=== PATIENT | male | born 1985 | race Caucasian/White ===

== ENCOUNTER 2021-08-04 20:18 | Emergency (ER) | payer MEDICAID, SELFPAY ==
[2021-08-04 20:23] VITALS: BP 156/81; PULSE 110; RESP 18; TEMP 36.6; O2SAT 97
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
[2021-08-04] MEDS: Ibuprofen 800 MG TAB PO (21:12)
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
== END 2021-08-04 22:05 | disposition home or self-care (01) ==
PROVIDERS: Emergency Provider Student in an Organized Health Care Education/Training Program
DX: S62.396A Other fracture of fifth metacarpal bone, right hand, initial encounter for closed fracture (principal); S69.81XA Other specified injuries of right wrist, hand and finger(s), initial encounter; W22.09XA Striking against other stationary object, initial encounter
CPT/HCPCS: 29125; 99284; 73110; 73130; 99283

== ENCOUNTER 2021-08-18 10:30 | Outpatient (CLI) | payer MEDICAID, SELFPAY ==
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
== END 2021-08-18 10:31 | disposition home or self-care (01) ==
LOC: DIORS 10:30
PROVIDERS: Visit Provider Student in an Organized Health Care Education/Training Program
DX: S62.336A Displaced fracture of neck of fifth metacarpal bone, right hand, initial encounter for closed fracture; X58.XXXA Exposure to other specified factors, initial encounter
CPT/HCPCS: 73130

== ENCOUNTER 2021-08-18 10:59 | Outpatient (CLI) | payer MEDICAID, SELFPAY ==
[2021-08-18 12:28] LABS: Source Nasal/Nares
[2021-08-19 01:20] LABS: COVID-19 PCR Negative (Negative)
== END 2021-08-18 11:00 | disposition home or self-care (01) ==
LOC: LBO 11:00
PROVIDERS: Visit Provider Student in an Organized Health Care Education/Training Program
DX: Z20.822 Contact with and (suspected) exposure to COVID-19 (principal); Z01.818 Encounter for other preprocedural examination
CPT/HCPCS: 87635

== ENCOUNTER 2021-08-20 10:49 | Day surgery (SDC) | payer MEDICAID, SELFPAY ==
--- NOTE | 2021-08-20 10:33 | W.ANESPRE ---
General Info Date of Service Date Performed: 08/20/21 Height: 5 ft 10 in Weight: 85.729 kg Body Mass Index (BMI): 27.1 Surgical Procedure: Operation Date: 08/20/21 13:40 Proposed Procedure Side Surgeon p Small Finger Metacarpal Closed Reduction and Splinting, possible Perc Pinning Right Last Fuentes MD Meds Allergies and Home Medications Allergies Allergy/AdvReac Type Severity Reaction Status Date / Time No Known Allergies Allergy Unverified 08/20/21 11:04 Home Medication Medication Instructions Recorded dextroamphetamine-amphetamine 30 30 mg PO BID 08/04/21 mg tablet (Adderall) Current Visit Medications: Current Medications Generic Name Dose Route Start Last Admin Trade Name Freq PRN Reason Stop Dose Admin Ringer's Solution 1,000 mls @ 30 mls/hr 08/20/21 06:00 IV 09/18/21 23:59 INFUSION ELIA Cefazolin Sodium/Dextrose 2 gm in 50 mls @ 100 mls/hr 08/20/21 06:00 Ancef Duplex IVPB 08/20/21 16:00 PREOP ELIA IV Miscellaneous Supplies 1 each 08/20/21 06:00 Iv Access IV 09/18/21 23:59 DIRECTED ELIA Naproxen 250 - 500 mg 08/20/21 07:33 Naproxen 500 Mg Tab PO BID PRN PRN Oxycodone HCl 5 - 10 mg 08/20/21 07:33 Oxycodone 5 Mg Tab PO Q4H PRN PRN Sodium Chloride 0 ml 08/20/21 06:00 Normal Saline Flush 10 Ml Syr IV 09/18/21 23:59 PRN PRN Sodium Chloride 0 ml 08/20/21 06:00 Normal Saline 10 Ml Vial IJ 09/18/21 23:59 DIRECTED PRN Sterile Water 0 ml 08/20/21 06:00 Water,Injection,Sterile 10 Ml Vial IJ 09/18/21 23:59 DIRECTED PRN PFSH Active Problems Active Problems: Problem Status Onset Code Closed fracture of fifth metacarpal bone of right hand 08/04/21 S62.306A Injury of right middle finger S69.91XA 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 Medical History Medical History (Updated 08/20/21 @ 11:58 by Helena Nayak RN) ADHD (attention deficit hyperactivity disorder) History of broken collarbone Hx of fracture of clavicle Hx of fracture of femur Tobacco Smoking/Tobacco Use Status: Current every day Tobacco Type: cigarettes Alcohol Alcohol Intake: current Alcohol intake frequency: a few times a week Substance Use Substance use type: does not use Vital Signs and Lab Results Vital Signs Most Recent Vital Signs in EMR: Temp Pulse Resp BP Pulse Ox 36.3 C L 84 18 147/81 H 98 08/20/21 11:07 08/20/21 11:07 08/20/21 11:07 08/20/21 11:07 08/20/21 11:07 Lab Results Blood Type / Crossmatch: No Data to Display Complete Blood Count: No Data to Display Complete Metabolic Panel: No Data to Display Liver Function Panel: No Data to Display Coagulation Panel: No Data to Display Cardiac Panel: No Data to Display Arterial Blood Gas: No Data to Display Venous Blood Gas: No Data to Display Pancreas Panel: No Data to Display Thyroid Panel: No Data to Display Infectious Disease: Coronavirus (COVID-19)(PCR) Negative (Negative) 08/18/21 11:07 Coronavirus 2019 Source Nasal/Nares 08/18/21 11:07 Blood Cultures: No Data to Display Toxicology Panel: No Data to Display Anesthesia Assessment and Plan Anesthesia History Personal History: No History of Anesthesia Complications Family History: No Family History of Anesthesia Complications Exercise Tolerance Exercise Tolerance: Metabolic Equivalents>4 Pertinent Negatives Pertinent Negatives: No Symptoms of GERD, No Major Cardiovascular Symptoms or Complaints, No Major Pulmonary Symptoms or Complaints and No History of CVA/TIA Cardiac & Pulmonary Exam Cardiac Exam: Normal S1/S2 Heart Sounds Pulmonary Exam: Clear Bilateral Breath Sounds Implantable Cardiac Device Does patient have a Pacemaker or an ICD?: No Airway Exam Known Difficult Airway: No Mallampati Class: 2 Mouth Opening: Normal (> 3cm) Thyromental Distance: Greater than 3 cm Neck Range of Motion: Full ROM Neck Circumference: Normal Teeth Condition: Normal Dentition ASA Classification ASA Score: ASA 2 Emergency Case?: No NPO Status NPO Status: NPO Clears >2 hours, Solids >8 hours Anesthesia Plan Resuscitation Status: Full Code Anesthesia Technique: General Anesthesia Airway Planned: Natural Airway Monitors Used: Standard Monitors
[2021-08-20 11:07] VITALS: BP 147/81; PULSE 84; RESP 18; TEMP 36.3; O2SAT 98
[2021-08-20] MEDS: Lactated Ringers 1,000 ML 30 ML IV (11:27)
[2021-08-20 13:32] VITALS: BMI 27.1
[2021-08-20] MEDS: Bupivacaine 0.5% Pres-Free W/EPI 10 ML VIAL (14:04)
--- NOTE | 2021-08-20 14:06 | DI.RAD_ITS ---
Exam(s) XR HAND RT LIMITED EXAM: XR HAND RT LIMITED CLINICAL HISTORY: Closed fracture of fifth metacarpal bone of right. TECHNIQUE: 2D and realtime digital imaging was performed. COMPARISON: CR XR HAND RT COMPLETE from 08/18/2021 FINDINGS: Fluoroscopy was provided for Dr. Fuentes for guidance with performing close reduction 5th metacarpal fr acture. Hard copy images show improvement in the fracture alignment. Please see procedure note for details. Fluoro time 39.2 seconds RADIATION DOSE DELIVERED: Felisar=0.84 mGy
[2021-08-20 14:13] VITALS: BP 137/67; PULSE 89; RESP 16; TEMP 37; O2SAT 96
--- NOTE | 2021-08-20 14:22 | W.PM.DSUDISC ---
Discharge Plan Disposition Patient Disposition: HOME Condition: Stable Discharge Details Reason For Visit: Right hand fracture Attending Provider: Last Fuentes Primary Care Provider: None,None Home Meds and New Rx's Prescriptions: New naproxen 250 mg tablet 250 - 500 mg PO BID PRNQty: 28 0RF Rx Instructions: take with a meal oxycodone 5 mg tablet 5 - 10 mg PO Q4H MDD 30 mg PRN (Reason: moderate to severe pain) Qty: 9 0RF Continued dextroamphetamine-amphetamine [Adderall] 30 mg Tablet 30 mg PO BID Discharge Instructions Additional Instructions: Surgery: Right Boxer's fracture closed reduction Activity: Keep fracture brace on most of the time. Gentle use of the right hand and fingers. Avoid power tools or heavy lifting. Prescriptions: Naproxen 250 mg take 1-2 every 12 hours with a meal as needed for moderate pain Oxycodone 5 mg take 1-2 every 4-6 hours as needed for severe pain You may use [id number] Tylenol (acetaminophen) as needed for mild pain. These pain medications may be taken all at once or in different combinations as needed. Also, recommend Colace (docusate) as a stool softener as surgery and pain medicine cause constipation. You may try [id number] diphenhydramine (Benadryl) 25-50 mg nightly as a sleep aid Dressings: May remove Band-Aid tomorrow Follow-up: 10-[address] Fuentes Let us know right away if you develop any redness, drainage, fevers, chest pain, or trouble breathing. Do not drink alcohol or drive for at least 24 hours after anesthesia. Please call the office during business hours with any questions or concerns. Discharge Orders Discharge Orders: Discharge Order (Routine); Ordered 08/20/21 Ordered By: Last Fuentes DS: Diagnosis Discharge Diagnosis (1) Closed fracture of fifth metacarpal bone of right hand: Status: Acute
--- NOTE | 2021-08-20 14:28 | W.PM.OP ---
Operative Note Operative Note DATE OF PROCEDURE: 08/20/21 PRE-OP DIAGNOSIS: Right displaced fifth metacarpal neck fracture POST-OP DIAGNOSIS: same PROCEDURE: Right fifth metacarpal closed reduction with manipulation, CPT #54634 SURGEON: Last Fuentes E [employer] SPECIALIST: None None ANESTHESIA TYPE: Local By Surgeon and General:No Airway Refer to Anesthesia Record ESTIMATED BLOOD LOSS: 0 PATHOLOGY: none sent TOURNIQUET TIME: 0 COMPLICATIONS: None Patient was transported to: PACU Patient's condition: stable Implants: None Indications: Please see complete medical record for details. Procedure Description: In the operating room, general anesthesia was induced. The patient was positioned supine on the operating room table. All bony prominences were well-padded. Preoperative antibiotics were held pending close reduction. The correct patient, procedure, and side of the procedure were all verified prior to beginning. The fracture site was palpated. Corrective force and exaggerated force was used and attempted reduction. There was no motion at the metacarpal neck fracture site under manual stress and confirmed with fluoroscopy. The fracture was healing and apparently stable. As best possible, the flexion deformity was then corrected using Jahss maneuver. Steady constant corrective manipulation similar to a greenstick fracture was able to achieve a modest reduction. Additional reduction attempts could not completely reduce the fracture. The fracture was well aligned in the coronal plane with only mild to moderate residual flexion deformity. Additional stress x-rays did not show any loss of reduction or motion of the fracture site. 7 cc of 0.5% bupivacaine containing epinephrine was infiltrated about the fracture for postoperative analgesia. Decision was made to omit any plaster ulnar gutter splint. Instead, the previously fit ulnar gutter fracture brace was placed on the extremity. The patient awoke from anesthesia without complication and was transferred to the recovery room in a stable condition.
[2021-08-20 14:50] VITALS: BP 132/74; PULSE 74; RESP 16; TEMP 37; O2SAT 98
[2021-08-20] MEDS: Normal Saline Flush 10 ML SYR IV (14:52)
[2021-08-20] MEDS: oxyCODONE 5 MG TAB PO (14:57)
--- NOTE | 2021-08-20 15:03 | W.ANESPOSTOP ---
Postoperative Evaluation Date, Time and Location Date Performed: 08/20/21 Time Performed: 15:03 Patient Location: Day Surgery Unit Vital Signs Most Recent Imported Vital Signs: Most Recent Vital Signs Temp Pulse Resp BP Pulse Ox 37.0 C 89 16 137/67 96 08/20/21 14:13 08/20/21 14:13 08/20/21 14:13 08/20/21 14:13 08/20/21 14:13 Pain Score Most Recent Pain Score: Most Recent Pain Score Pain Level 0 08/20/21 14:13 Assessment Mental Status: Awake (Alert & Oriented to Patient Baseline) Airway and Respiratory Function: Patent airway with normal (patient baseline) respiratory exam Cardiovascular Function: Hemodynamically Stable Hydration Status: Adequately Hydrated Nausea & Vomiting: No Nausea or Vomiting Pain: Pain is Moderate or Severe (PO oxycodone given by DSU RN) Postoperative Pain Management: Pain being addressed with medication Peripheral Nerve Block: Patient did not receive a nerve block
[2021-08-20 15:30] VITALS: BP 134/80; PULSE 72; RESP 16; TEMP 36.5; O2SAT 100
== END 2021-08-20 15:36 | disposition home or self-care (01) ==
PROVIDERS: Visit Provider Student in an Organized Health Care Education/Training Program
PROC: (CPT 26605; principal; 2021-08-20 13:30)
DX: S62.336A Displaced fracture of neck of fifth metacarpal bone, right hand, initial encounter for closed fracture (principal); W21.89XA Striking against or struck by other sports equipment, initial encounter; Y93.22 Activity, ice hockey; F90.9 Attention-deficit hyperactivity disorder, unspecified type
CPT/HCPCS: 26605; 73120; J1885; J2405; J2704

== ENCOUNTER 2021-09-08 10:20 | Outpatient (CLI) | payer MEDICAID, SELFPAY ==
--- NOTE | 2021-09-08 08:30 | DI.RAD_ITS ---
Exam(s) XR HAND RT LIMITED EXAM: XR HAND RT LIMITED CLINICAL HISTORY: fx R hand. TECHNIQUE: 2D digital imaging was performed of the right hand. Two images were obtained. PA and lat eral views were obtained. COMPARISON: CR XR HAND RT COMPLETE from 08/18/2021 XA XR HAND RT LIMITED from 08/20/2021 FINDINGS: BONES: There is again seen a fracture involving the diaphysis of the right 5th metacarpal. There is mild volar angulation. Callus formation has developed about the fracture consistent with some interv al healing. No new fracture is seen. No bony destructive lesion is seen. JOINTS: No dislocation present. SOFT TISSUE: Normal. IMPRESSION: Healing 5th metacarpal fracture. DATA REPOSITORY: RADIATION DOSE DELIVERED:
== END 2021-09-08 10:21 | disposition home or self-care (01) ==
LOC: DIORS 10:20
PROVIDERS: Visit Provider Physician Assistant
DX: S62.306D Unspecified fracture of fifth metacarpal bone, right hand, subsequent encounter for fracture with routine healing (principal); X58.XXXD Exposure to other specified factors, subsequent encounter
CPT/HCPCS: 73120

== ENCOUNTER → 2021-10-23 00:09 | Outpatient (CLI) | payer MEDICAID, SELFPAY ==
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
--- OUTSIDE RECORDS SUMMARY | 2021-10-23 00:10 | XMS_ITS | Clinical Summary ---
:1985 Author Organization [facility] Address [address] [place] [address] Care Team Providers Name Role Phone None, Provider Primary Care Provider Unavailable Medications No known medications Social History Tobacco Use Types Packs/Day Years Used Date Never Assessed Sex Assigned at Date Recorded Not on file Plan of Treatment Health Maintenance Due Date Last Done Comments Hepatitis C Screen 1985 COVID-19 Vaccine (1) 09/09/1992 Care Teams Client Relationship Consultant Relationship Specialty Start Date End Date None, Provider PCP - General 04/08/21
--- OUTSIDE RECORDS SUMMARY | 2021-10-23 00:10 | XMS_ITS | Encounter Summary ---
:1985 Author Organization [facility] [place] [address] Care Team Providers Name Role Phone None Primary Care Provider Unavailable Encounter Details Date Type Department Care Team Description 10/23/2020 Hospital Encounter [place]Ray [place] [facility] [place] Kim Allison, Closed wedge compression fra cture of T1 vertebra with routine healing, subsequent encounter; [address] [facility] [address] [place] Closed wedge compression fracture of L1 vertebra with routine healing, subsequent encounter [facility] [phone] [place] [phone] [place] [address] Social History Tobacco Use Types Packs/Day Years Used Date Former Smoker Smokeless Tobacco: Current User Chew Alcohol Use Standard Drinks/Week Comments Yes 35 (1 standard drink = 0.6 oz pure alcoh ol) Sex Assigned at Date Recorded Not on file documented as of this encounter Plan of Treatment Not on filedocumented as of this encounter Procedures Procedure Name Priority Date/Time Associated Diagnosis Comme nts XR LUMBAR SPINE 2 Routine 10/23/2020 4:26 PM Closed wedge Resu lts for this OR 3 VIEWS EDT compression fracture procedu re are in of L1 vertebra with the resu lts routine healing, section. subsequent encounter XR THORACIC SPINE 2 Routine 10/23/2020 4:26 PM Closed wedge Re sults for this VIEW INCLUDING EDT compression fracture proce dure are in SWIMMERS VIEW of T1 vertebra with the res ults routine healing, section. subsequent encounter documented in this encounter Results XR Lumbar Spine 2 [...] who have questions please contact the health healthcare architect that requested your imaging first. ? Electronically signed by: Ivan min MD, [facility] ([phone]), at 10/23/2020 4:50 PM Narrative 10/23/2020 4:50 PM EDT EXAMINATION: XR [...] ho have questions please contact the health healthcare architect that requested your imaging first. Electronically signed by: Ivan min MD, [facility] ([phone]), at 10/23/2020 4:50 PM Kim Allison MD IMG DX ORDERABLES XR [...] who have questions please contact the health healthcare architect that requested your imaging first. ? Electronically signed by: Ivan min MD, [facility] ([phone]), at 10/23/2020 4:49 PM Narrative 10/23/2020 4:49 PM EDT EXAMINATION: XR [...] ho have questions please contact the health healthcare architect that requested your imaging first. Electronically signed by: Ivan min MD, [facility] ([phone]), at 10/23/2020 4:49 PM Kim Allison MD IMG DX ORDERABLES documented in this encounter Visit Diagnoses Diagnosis Closed wedge compression fracture of T1 vertebra with routine healing, subsequent encounter Closed wedge compression fracture of L1 vertebra with routine healing, subsequent encounter documented in this encounter Care Teams Sports Book Server Relationship Specialty Start Date End Date None PCP - General 10/06/20 None documented as of this encounter
--- OUTSIDE RECORDS SUMMARY | 2021-10-23 00:10 | XMS_ITS | Encounter Summary ---
:1985 Author Organization [facility] Address [address] [place] [address] Care Team Providers Name Role Phone None, Provider Primary Care Provider Unavailable Encounter Details Date Type Department Care Team Description 04/08/2021 Emergency [facility] - Oswaldo Stein PA-C [address] [place] [address] [phone] Open wound of right [facility] Bryon Jesus MD [address] [place] [address] [phone] hand due to dog bite Department (Primary Dx) [address] [place] [phone] Social History Tobacco Use Types Packs/Day Years Used Date Never Assessed Sex Assigned at Date Recorded Not on file documented as of this encounter Discharge Instructions InstructionsBryon Jesus MD - 04/08/2021 You were seen in the emergency room today for a dog bite to your right hand. There was no evidence of any broken bones or dislocation. You do have multiple puncture wounds. We care a lot about your hands and you should get seen again to be reevaluated make sure that these wounds are healing appropriately and there is no infection. I have placed a referral to orthopedic surgery for you to arrange follow-up. In the meantime, please take the antibiotics we have prescribed twice a day. If you develop significant worsening pain that does not improve with ibuprofen or Tylenol, fevers, red streaking up the arm or other symptoms that are concerning to you please return to the emergency room for reevaluation. It is extremely important that you confirm that the dog that attacked you today has had its rabies vaccine and is up-to-date on shots. Even if you can only get the veterinary clinic where the extrusion press operator brings the dog you should be able to call them and request records. If you are unable to confirm that the dog is up-to-date on vaccines [facility]. documented in this encounter Medications at Time of Discharge Medication Sig Dispensed Refills Start Date End Date amoxicillin-clavulanate Take 1 Tablet by 14 Tablet 0 202104/15/2021 (AUGMENTIN) 875-125 mg mouth 2 times daily per tablet for 7 days. documented as of this encounter Ordered Prescriptions Prescription Sig Dispensed Refills Start Date End Date amoxicillin-clavulanate Take 1 Tablet by 14 Tablet 0 202104/15/2021 (AUGMENTIN) 875-125 mg per mouth 2 times daily tablet for 7 days. documented in this encounter Discharge Disposition Disposition Code Departure Means Destination Home or Self Custodial documented in this encounter ED Notes Bryon Jesus MD - 04/08/2021 1435 ESTAssociated Order(s): Wound Care Emergency Department Visit Assessment and ED Course 35-year-old otherwise healthy male presents for evaluation of dog bite to the right hand. There seemto be 3 separate puncture wounds. No obvious joint involvement. Plain films negative. Dog appears lashae up-to-date on vaccines but we did have a shared decision-making discussion about the initiation of rabies prophylaxis given that the extrusion press operator of the dog is not well known to the patient. We have elected to defer treatment at this time. He will attempt to confirm vaccination status of the dog when he leaves the emergency room. He was informed that if this cannot be confirmed he will return to the emergency department immediately for initiation of rabies prophylaxis. He is up-to-date on his tetanus. He was treated empirically with Augmentin. Wound was copiously irrigated as detailed below. Placed in a bulky gauze dressing. Strict return precautions discussed and included in discharge instructions Final diagnoses: Open wound of right hand due to dog bite Disposition: Discharged Chief complaint: dog bite HPI Erick Clement is a 35 y.o. male who presents to the ED for evaluation of a dog bite Great piranese bit his right hand. No other injuries or bites. Pain in his wrist and difficulty moving his thumb Injury occurred late in the morning today, several hours ago. He does not know the extrusion press operator of the dog well but knows that they live nearby. He states that they cameby his house and told him that the dog was up-to-date on shots. No allergies to meds, no fevers or pain elsewhere. History was provided by: Patient Patient's pertinent PMH, FH, SH were reviewed and edited as necessary. ROS A 10-point review of systems was performed. The patient answered negative to all questions with the exceptions of those explicitly detailed as positives in the HPI. Pertinent negatives are also explicitly stated. Physical Exam There were no vitals taken for this visit. A medical screening exam was performed. Physical Exam Constitutional: Appearance: He is well-developed and well-nourished. HENT: Nose: No nasal discharge. Cardiovascular: Rate and Rhythm: Normal rate. Pulmonary: Effort: No respiratory distress. Abdominal: General: There is no distension. Musculoskeletal: Cervical back: Normal range of motion. Comments: Presumed to be 3 separate puncture wounds to the right hand. One on the dorsal aspect of the right forearm. Does not seem to involve the wrist joint. There are 2 puncture wounds involving the thenar eminence one on the dorsal aspect and one on the volar surface. There are some swelling of the thenar eminence. Again, there does not appear to be any clear joint involvement. The patient does have fully intact flexion, extension, opposition of the thumb with intact sensation to light touch. Finger flexion of the hand results in pain primarily around the thumb. No erythema, purulence, lymphatic streaking. No involvement of the elbow. No other injuries noted. No nailbed injuries noted. Skin: General: Skin is warm and dry. Neurological: Mental Status: He is alert and oriented to person, place, and time. Psychiatric: Mood and Affect: Mood and affect normal. Imaging obtained was reviewed and independently interpreted. Plain film imaging of the hand and wrist are unremarkable for fracture or dislocation. Laboratory results independently reviewed. Procedures Wound Care Date/Time: 04/08/2021 17:26 Performed by: Bryon Jesus MD Authorized by: Bryon Jesus MD Consent: Consent obtained: Verbal Consent given by: Patient Risks discussed: Bleeding and pain Anesthesia (see MAR for exact dosages): Anesthesia method: None (patient refused) Procedure details: Indications comment: Puncture wounds to hand Wound exploration location: extremity Wound age (days): <1 Post-procedure details: Patient tolerance of procedure: Tolerated well, no immediate complications Comments: Copious irrigation of puncture wounds to the right hand using a liter of sterile water. Placed in abulky gauze dressing. documented in this encounter Plan of Treatment Not on filedocumented as of this encounter Procedures Procedure Name Priority Date/Time Associated Diagnosis Comme nts ED WOUND CARE Routine 04/08/2021 17:26 Results fo r this EST procedure are i n the results section. XR WRIST RIGHT 3 OR STAT 04/08/2021 15:21 Resu lts for this MORE VIEWS EST procedure are i n the results section. XR HAND RIGHT 3 OR STAT 04/08/2021 15:20 Resul ts for this MORE VIEWS EST procedure are i n the results section. documented in this encounter Results Wound Care (04/08/2021 17:26 EST) Narrative [facility] EKG - 04/08/2021 17:2 6 EST Bryon Jesus MD ? 04/08/2021 17:29 Wound Care Date/Time: 04/08/2021 17:26 Performed by: Bryon Jesus MD Authorized by: Bryon Jesus MD Consent: ??Consent obtained: ??Verbal ??Consent given by: ??Patient ??Risks discussed: ??Bleeding and pain Anesthesia (see MAR for exact dosages): ??Anesthesia method: ??None (patient re fused) Procedure details: ??Indications comment: ??Puncture wound s to hand ??Wound exploration location: extremity ?Wound age (days): ??<1 Post-procedure details: ??Patient tolerance of procedure: ??Aruna erated well, no immediate complications Comments: ?? Copious irrigation of puncture wound s to the right hand using a liter of sterile water. ??Placed in a bulky ga uze dressing. Performing Organization Address City/State/ZIP Code Phon e Number [facility] EKG XR WRIST RIGHT 3 OR MORE VIEWS (04/08/2021 15:21 EST) Anatomical Region Laterality Modality Upper Extremities Right Computed Radiography Specimen Impressions [facility] RADIOLOG[facility] - 04/08/2021 15:32 EST 1. No acute osseous abnormality. 2. No radiopaque foreign body. Narrative [facility] - 04/08/2021 15:32 EST INDICATION: dog bite vs hand and wrist TECHNIQUE: 3 views right wrist. 4 views right hand. COMPARISON: None. FINDINGS: The wrist and hand are well al igned. No fracture is detected. No radiopaque foreign body is detected. Soft tissue swelling is noted at the thenar eminence. Procedure Note Octavio Smith MD - 04/08/2021 INDICATION: dog bite vs hand and wrist TECHNIQUE: 3 views right wrist. 4 views right hand. COMPARISON: None. FINDINGS: The wrist and hand are well al igned. No fracture is detected. No radiopaque foreign body is detected. Soft tissue swelling is noted at the thenar eminence. IMPRESSION 1. No acute osseous abnormality. 2. No radiopaque foreign body. Performing Organization Address City/State/ZIP Code Phon e Number [facility] XR HAND RIGHT 3 OR MORE VIEWS (04/08/2021 15:20 EST) Anatomical Region Laterality Modality Upper Extremities Right Computed Radiography Specimen Impressions [facility] - 04/08/2021 15:32 EST 1. No acute osseous abnormality. 2. No radiopaque foreign body. Narrative [facility] - 04/08/2021 15:32 EST INDICATION: dog bite vs hand and wrist TECHNIQUE: 3 views right wrist. 4 views right hand. COMPARISON: None. FINDINGS: The wrist and hand are well al igned. No fracture is detected. No radiopaque foreign body is detected. Soft tissue swelling is noted at the thenar eminence. Procedure Note Octavio Smith MD - 04/08/2021 INDICATION: dog bite vs hand and wrist TECHNIQUE: 3 views right wrist. 4 views right hand. COMPARISON: None. FINDINGS: The wrist and hand are well al igned. No fracture is detected. No radiopaque foreign body is detected. Soft tissue swelling is noted at the thenar eminence. IMPRESSION 1. No acute osseous abnormality. 2. No radiopaque foreign body. Performing Organization Address City/State/ZIP Code Phon e Number [facility] documented in this encounter Visit Diagnoses Diagnosis Open wound of right hand due to dog bite - Primary documented in this encounter Administered Medications Inactive Administered Medications - up to 3 most recent administrations Medication Order MAR Action Action Date Dose Rate Site amoxicillin-clavulanate Given 04/08/2021 15:05 EST 1 Tablet (AUGMENTIN) 875-125 mg per tablet 1 Tablet 1 Tablet, oral, NOW X1, 1 dose, On Tue04/08/21 at 1515, STAT documented in this encounter Active and Recently Administered Medications Times are shown in EST. Scheduled Medication Order 04/06/2021 04/07/2021 04/08/2021 amoxicillin-clavulanate (AUGMENTIN) 875-125 mg per tablet 1 Tablet (COMPLETED) 1505 (Given - Provider: Fredo hernandez RN) 1 Tablet, oral, NOW X1, 1 dose, On Tue04/08/21 at 1515, STAT documented in this encounter Orders Medications Ordered That Might Not Have Count Last Ord ered Date First Ordered Date Been Administered amoxicillin-clavulanate (AUGMENTIN) 1 04/08/2021 875-125 mg per tablet 1 Tablet documented in this encounter Care Teams Dairy Farmworker Relationship Specialty Start Date End Date None, Provider PCP - General 04/08/21 documented as of this encounter
--- OUTSIDE RECORDS SUMMARY | 2021-10-23 00:10 | XMS_ITS | Encounter Summary ---
:1985 Author Organization [facility] [place] [address] Care Team Providers Name Role Phone None Primary Care Provider Unavailable Reason for Referral Consultation (Routine) - Closed Specialty Diagnoses / Procedures Referred By Contact Refer red To Contact Neurosurgery Diagnoses Multiple fractures Holly Sharma MD [facility] [address] [place] [address] [place] [address] [place] [address] Referral ID Status Reason Start Date Expiration Date Visits V isits Requested Authorized [id number] Closed Consult, 10/07/2020 10/07/2021 1 1 Test & Treat Consultation (Urgent) - Closed Specialty Diagnoses / Procedures Referred By Contact Refer red To Contact Orthopaedics Diagnoses Multiple fractures Pelvic FX Holly Sharma MD [facility] [address] [place] [address] [place] [address] [place] [address] Referral ID Status Reason Start Date Expiration Date Visits V isits Requested Authorized [id number] Closed Consult, 10/07/2020 10/07/2021 1 1 Test & Treat Reason for Visit Reason Comments Back Pain Hematuria Numbness Encounter Details Date Type Department Care Team Description 10/06/2020 - Emergency Emergency Department Jordan Henderson Mu ltiple fractures; 10/07/2020 Yasmin Cazares MD Closed fracture of first thoracic verteb ra, unspecified fracture morphology, initial encounter; [facility] Closed fracture of first lum bar vertebra, unspecified fracture morphology, initial encounter [facility] DR Morales EMERGENCY MEDICINE [place] [facility] [place] [id number] [phone] Social History Tobacco Use Types Packs/Day Years Used Date Never Assessed Sex Assigned at Date Recorded Not on file documented as of this encounter Last Filed Vital Signs Vital Sign Reading Time Taken Comments Blood Pressure 138/80 10/06/2020 11:15 PM EDT Pulse 74 10/06/2020 7:08 PM EDT Temperature 36.5 ??C (97.7 ??F) 10/06/2020 1:58 PM EDT Respiratory Rate 16 10/06/2020 7:08 PM EDT Oxygen Saturation 97% 10/07/2020 12:30 AM EDT Inhaled Oxygen Concentration - - Weight 86.2 kg (190 lb) 10/06/2020 1:58 PM EDT Height 177.8 cm (5' 10) 10/06/2020 1:58 PM EDT Body Mass Index 27.26 10/06/2020 1:58 PM EDT documented in this encounter Discharge Instructions Discharge InstructionsHolly Sharma MD - 10/07/2020 3:17 AM EDT You were seen in the emergency room due to a fall. You were evaluated by neurosurgery and found to multiple injuries including spinal fracutres and bleeding around your spinal cord. IYou must wear your c- collar until further notice. Please follow-up in neurosurgery clinic in 2 weeks. You can call their clinic to schedule an appointment at [phone]. If you experience worsening or new symptoms including weakness, numbness, severe pain, vision changes, fever, chills, difficulty urinating, or any other concerning symptoms please present to the emergency room right away for further evaluation. Orthopaedic Home Care Instructions Care of Your Broken Bone Below are general guidelines to follow after treatment for a fracture. We will give you more specific instructions depending on the type and location of your injury. You will need to be aware that these guidelines are only general, each person???s recovery may vary. If you have any questions after reading this sheet, please call us. 1. Injury: Anterior inferior iliac spine fracture 2. Activity Weightbearing status: Weight bearing as tolerated in the lower extremities from an orthopedics perspective Use ice over the injured extremity for about 72 hours - at least 3-4 times per day for 20 minutes arlene time. You can use a simple plastic bag with ice (double the bag!) and place the bag over the injured extremity. Ice is effective even through the casts. 3. Prescriptions: We recommend 1000 mg of Tylenol every 8 hours for the next 7-10 days. You may take up to 3000 mg of tylenol daily. You should not exceed 3000 mg daily. This recommendation is in the setting of a healthy liver. If you are concerned about the health of your liver or have other questions, please discuss with your primary care physician about taking this dose of Tylenol. Avoid ibuprofen type medications (aleve, advil, motrin, naprosyn, celebrex). These medications have been suggested to slow bone healing. You should find yourself needing less and less pain medication after the first few days. Take your pain medicine as directed. Take any of your other usual medicines as directed. 4. Please contact us if: If you have any questions or concerns, please call the following: - Orthopaedic Clinic Tuesday thru Tuesday 8am - 5pm: [phone] - Orthopaedic Physician legal receptionist - After 5pm and Weekends: [phone] 5. Follow-Up Appointments: We will contact you tomorrow regarding follow up in the Orthopedics clinic Your care today was provided by Conchis Hughes MD Orthopaedic Clinic: [phone] AttachmentsThe following attachments cannot be sent through Care Everywhere. Cervical Collars: General Info (Tajik)documented in this encounter ED Notes Hermes Gore RN - 10/07/2020 3:39 AM EDTSummary: discharge Reviewed written discharge instructions with the patient. Reviewed care management of the [place] collar. States clear understanding. Accompanied by significant other, who also states clear understanding. Reviewed follow-up plan of care, including follow-up with neurosurgery in 2 weeks and follow-up with orthopedics as directed by the orthopedic office. Phone numbers for both offices reviewed with the patient and discharge instructions. No further questions from the patient the patient significant other. Patient and significant other were independently ambulatory from the emergency department for discharge home Suleiman Michel RN - 10/06/2020 9:39 PM EDT 2134H Patient to MRI by bed with Burnham c-collar. Hermes Gore RN - 10/06/2020 9:37 PM EDT Head to toe physical assessment as noted. Lying on ER stretcher, patient is currently asymptomatic, but when patient turns his head to the left, patient gets pain and numbness down the left arm. With some movement, the patient experiences acute discomfort to his coccyx region. Patient is alert, oriented, pink warm and dry. Patient was found to have an EMS c-collar in place, this was changed to an [place] type collar, under the guidance of neurosurgery. Patient significant other is at the bedside. All questions are answered. Anjali Salinas RN - 10/06/2020 7:23 PM EDT Report given to DARVIN Escoebdo. Gian Bhat MD - 10/06/2020 2:21 PM EDT Erick Clement is an 35 y.o. male who presents to the ED with: Chief Complaint Patient presents with ??? Back Pain ??? Hematuria ??? Numbness I saw this patient 10/06/2020 at ~ 11:06 PM HPI Erick Clement is a 35 y.o. male who presents to the Emergency Department with complaints of back pain, numbness and hematuria after a fall. Patient states that he jumped off a roughly 110 [address] bridge on 10/04/2020. The patient states that he felt okay afterwards and he continued a river float that he was pa rticipating in for several hours. The patient states he was consuming alcohol this time. Patient states that after the referral ended he went to stand up and felt extreme pain in his back and that something was off. Patient presented to an outside hospital where he states the CT images were obtained of his back, chest and abdomen which he states showed compression fractures in his back. Patient states that he was given a soft abdominal wrap and was told to follow-up at a different outside hospital to obtain an MRI and to obtain orthopedic surgery service. Patient states that the hospital did not have MRI present thus he presented to [facility] today. Patient states that he did initially noticed some blood in his urine and again noticed hematuria this morning. Patient states that he has been having no abdominal pain, difficulty breathing, or difficulty walking. Patient states that he has noticed a burning shooting pain in his left hand when he tries to turn to the left. Patient states that this is associated with some numbness which then dissipates. The patient states that he additionally notices some numbness in his toes that is positional based on what direction he is turning. Patient states thathe has had no new weakness and currently denies any numbness. Patient states that since being seen because hospital he has noticed he has had increased pain in his neck as well as increased pain in hiscoccyx region. Social History Socioeconomic History ??? Marital status: Single Spouse name: None ??? Number of children: None ??? Years of education: None ??? Highest education level: None Occupational History ??? None Tobacco Use ??? Smoking status: None Substance and Sexual Activity ??? Alcohol use: None ??? Drug use: None ??? Sexual activity: None Other Topics Concern ??? None Social History Narrative ??? None Social Determinants of Health Financial Resource Strain: ??? Difficulty of Paying Living Expenses: Not on file Food Insecurity: ??? Worried About Running Out of Food in the Last Year: Not on file ??? Ran Out of Food in the Last Year: Not on file Transportation Needs: ??? Lack of Transportation (Medical): Not on file ??? Lack of Transportation (Non-Medical): Not on file Physical Activity: ??? Days of Exercise per Week: Not on file ??? Minutes of Exercise per Session: Not on file Review of Systems: Pertinent positives and negatives are included in the history of present illness, otherwise 10 systems are reviewed and negative Vital Signs: Patient Vitals for the past 24 hrs: BP Temp Temp src Pulse Resp SpO2 Height Weight 10/06/20 1908 144/81 -- -- 74 16 99 % -- -- 10/06/20 1358 -- 36.5 ??C (97.7 ??F) Oral 81 16 96 % 177.8 cm (5' 10) 86.2 kg (190 lb) I have reviewed the vital signs, which demonstrates Physical Exam: Physical Exam Constitutional: General: He is not in acute distress. Appearance: Normal appearance. He is normal weight. He is not ill-appearing. HENT: Head: Normocephalic and atraumatic. Eyes: Conjunctiva/sclera: Conjunctivae normal. Pupils: Pupils are equal, round, and reactive to light. Cardiovascular: Rate and Rhythm: Normal rate and regular rhythm. Pulmonary: Effort: Pulmonary effort is normal. No respiratory distress. Abdominal: General: Abdomen is flat. Tenderness: There is no abdominal tenderness. Musculoskeletal: General: No swelling. Right shoulder: Normal. Left shoulder: Normal. Right elbow: Normal. Left elbow: Normal. Right wrist: Normal. Left wrist: Normal. Cervical back: Normal range of motion and neck supple. Tenderness and bony tenderness present. No deformity. Thoracic back: Tenderness and bony tenderness present. No deformity. Lumbar back: Tenderness and bony tenderness present. No deformity. Skin: General: Skin is warm and dry. Capillary Refill: Capillary refill takes less than 2 seconds. Neurological: General: No focal deficit present. Mental Status: He is alert and oriented to person, place, and time. Cranial Nerves: Cranial nerves are intact. Motor: Motor function is intact. No weakness. Psychiatric: Mood and Affect: Mood normal. Behavior: Behavior normal. ED Course: - Patient was evaluated and discussed with the Attending Physician - Medications, allergies and past medical history reviewed - Nursing notes and vital signs reviewed - Medications and fluid administered: Medications ketorolac (Toradol) (15 mg/mL) injection 15 mg (15 mg Intravenous Given 10/06/201805) acetaminophen (Tylenol) tablet 1,000 mg (1,000 mg Oral Given 10/06/201805) - I have reviewed the labs, which are significant for: Recent Results (from the past 24 hour(s)) Basic Metabolic Panel (non-fasting) Result Value Ref Range Glucose Lvl 100 65 - 199 mg/dL BUN 9 (L) 10 - 20 mg/dL Creatinine 0.89 0.80 - 1.50 mg/dL Sodium 139 135 - 145 mmol/L Potassium 4.0 3.5 - 5.0 mmol/L Chloride 106 98 - 107 mmol/L CO2 22 22 - 31 mmol/L Anion Gap 11 5 - 15 mmol/L Calcium 8.7 8.5 - 10.5 mg/dL Estimated GFR 112 >=60 mL/min/1.73 m?? Hepatic Function Panel Result Value Ref Range Total Protein 7.2 6.1 - 8.0 gm/dL Albumin 4.2 3.2 - 5.2 gm/dL AST 38 0 - 39 unit/L ALT 20 0 - 55 unit/L Alk Phos 63 40 - 130 unit/L Total Bilirubin 0.8 0.2 - 1.3 mg/dL Bili, Direct 0.2 0.0 - 0.3 mg/dL Hemogram Result Value Ref Range WBC 8.1 4.0 - 9.5 x10(3)/mcL RBC 4.40 (L) 4.58 - 5.54 x10(6)/mcL Hemoglobin 14.2 13.7 - 16.5 gm/dL Hematocrit 39.4 (L) 40.5 - 48.5 % MCV 89.5 82.9 - 93.1 fL MCH 32.3 (H) 27.5 - 32.1 pg MCHC 36.0 (H) 32.0 - 35.7 gm/dL Platelets 155 145 - 357 x10(3)/mcL RDWSD 42.0 36.0 - 45.0 fL RDWCV 12.8 11.4 - 13.8 % MPV 10.6 7.6 - 12.9 fL nRBC % Auto 0.0 % nRBC Abs Auto 0.000 0.000 - 0.000 x10(3)/mcL Differential, Automated Result Value Ref Range Neutrophils % 80.2 % Neutr Abs (ANC) 6.49 (H) 1.70 - 6.10 x10(3)/mcL Lymphocytes % 11.6 % Lymphocytes Abs 0.9 0.9 - 3.2 x10(3)/mcL Monocytes % 7.0 % Monocyte Abs 0.6 0.3 - 0.9 x10(3)/mcL Eosinophils % 0.4 % Eosinophils Abs 0.0 0.0 - 0.4 x10(3)/mcL Basophils % 0.4 % Basophils Abs 0.0 0.0 - 0.1 x10(3)/mcL Immature Gran % 0.40 % Sara Gran Abs 0.03 0.00 - 0.04 x10(3)/mcL Blue Tube HOLD Result Value Ref Range Blue Hold Sample in lab. Blue Tube HOLD Result Value Ref Range Blue Hold Sample in lab. Blue Tube HOLD Result Value Ref Range Blue Hold Sample in lab. Urinalysis with reflex Culture Specimen: Clean Catch Urine Result Value Ref Range Glucose UA Negative Negative mg/dL Protein UA Negative Negative mg/dL Bilirubin UA Negative Negative mg/dL Urobilinogen UA Normal Normal mg/dL pH UA 6.5 5.0 - 8.0 Blood UA Negative Negative mg/dL Ketones UA Negative Negative mg/dL Nitrite UA Negative Negative Leukocytes UA Moderate (A) Negative mcL Appearance UA Clear Clear Spec [place] UA 1.010 1.005 - 1.030 Color UA Yellow Yellow Culture Reflexed Yes Urinalysis Microscopic Exam Result Value Ref Range RBC UA 0 0 - 3 /HPF WBC UA 1 0 - 3 /HPF - I have reviewed the imaging, which is significant for: Request For 2nd Read CT Head And Spine Final Result CT brain: Limited by contrast administration but no intracranial hemorrhage or other acute brain injury is identified. CT cervical spine: No fracture or subluxation CT thoracic spine: mild wedged appearance of T1 suggesting minimal compression deformity. MRI may be useful. CT lumbosacral spine: Wedge compression deformity of L1, about 30% vertebral body height loss anteriorly. No definite spinal canal compromise. Thank you for letting us participate in the care of this patient. If you are a health care provider and have any questions regarding this report, please contact the number below. For patients who have questions please contact the health foster care therapist that requested your imaging first. Electronically signed by: Jarad Dennis MD, [facility] ([phone]), at 10/06/2020 6:23 PM Request For 2nd Read CT Spine Final Result CT brain: Limited by contrast administration but no intracranial hemorrhage or other acute brain injury is identified. CT cervical spine: No fracture or subluxation CT thoracic spine: mild wedged appearance of T1 suggesting minimal compression deformity. MRI may be useful. CT lumbosacral spine: Wedge compression deformity of L1, about 30% vertebral body height loss anteriorly. No definite spinal canal compromise. Thank you for letting us participate in the care of this patient. If you are a health care provider and have any questions regarding this report, please contact the number below. For patients who have questions please contact the health foster care therapist that requested your imaging first. Electronically signed by: Jarad Dennis MD, [facility] ([phone]), at 10/06/2020 6:23 PM Request For 2nd Read CT Chest Abdomen Pelvis Final Result 1. L1 vertebral body and coccyx fractures, see separately reported CT spine reconstructions, with a small amount of soft tissue fluid in these areas. 2. Question tiny anterior inferior iliac spine avulsion fracture fragment on the right. Thank you for letting us participate in the care of this patient. If you are a health care provider and have any questions regarding this report, please contact the number below. For patients who have questions please contact the health foster care therapist that requested your imaging first. Electronically signed by: Zara Castellanos MD, [facility] ([phone]), at 10/06/2020 6:15 PM Film Library- Storage Only CT Head And Spine Final Result Film Library- Storage Only CT Spine Final Result Film Library- Storage Only CT Chest Abdomen Pelvis Final Result MRI Cervical Spine wo Contrast (Generic) (Results Pending) MRI Thoracic Spine wo Contrast (Generic) (Results Pending) MRI Lumbar Spine wo Contrast (Generic) (Results Pending) Assessment and Plan: MDM: Erick Clement is a 35 y.o. male who presents to the Emergency Department with complaints of back pain, numbness and hematuria after a fall. Patient presents hemodynamically stable no signs of any acute distress. The patient presents with complaints of back pain, numbness and hematuria after a fall. The patient was evaluated outside hospital 2 days ago where he reportedly receives CT imaging. Is unclear to what extent the imaging was obtained and we are obtaining records from the outside hospital currently. The patient was in no acute distress upon evaluation but did have midline cervical, lumbarand thoracic spine tenderness. Patient also had midline sternal chest tenderness to palpation but nolateral rib tenderness or any difficulty breathing. Patient had no abdominal pain or pelvic pain. Source of the hematuria is unclear at this time. Patient's labs returned reassuring with no evidence of blood in his urine and a normal hemoglobin. It unfortunately took somewhat of a delay to get the images pushed over from outside hospital. Thesewere eventually able to push however successfully and they were reevaluated by the radiology department. They showed a S1 fracture, an L1 vertebral body fracture as well as a coccyx fracture. He also showed a question of a tiny anterior inferior iliac spine avulsion fracture on the right. The patient having multiple fractures multiple sites required us to obtain a trauma evaluation. Orthopedic surgery was consulted as well as neurosurgery. The patient needed his left face dermal piercing removed in order to obtain the MRI, which the patient agreed to. Patient was signed out to the night team pending trauma surgery evaluation, orthopedic surgery evaluation, and neurosurgery evaluation. The patient obtained the MRI of his spine and we are waiting reads. Plan: -Follow-up neurosurgery recommendations -Follow-up orthopedic surgeon recommendations -Trauma surgery eval Gian Bhat MD EM Resident, PGY-3 10/06/20 11:06 PM Gian Bhat MD Resident 10/06/20 4898 Associated attestation - Jordan Henderson MD - 10/08/2020 11:49 PM EDT ED ATTENDING ATTESTATION The patient was seen in conjunction with the resident physician. I have independently performed the thomas portions of the history and physical exam. I have personally reviewed nursing notes, vital signs,and diagnostic studies including labs, imaging studies and EKGs. I have discussed the details of the case with the resident and agree with the assessment and plan as described in the resident's note.. Did this case involve critical care? No Brandon Ingram PA - 10/06/2020 1:52 PM EDT Brief Provider Triage Note: Patient states that he broke his back this weekend after jumping off a 110' bridge and is here for further evaluation. No loss of bowel or bladder control. Admits to numbness in toes in both feet, blood in his urine, left arm numbness when he moves his neck, neck pain, low back pain. No SI/HI. No LOC.He was told to come to the ED for an MRI. Patient is nontoxic appearing Labs ordered. Brandon Ingram PA 10/06/20 1359 documented in this encounter Miscellaneous Notes Consult Note - Conchis Hughes MD - 10/07/2020 3:35 AM EDT ORTHOPAEDIC SURGERY CONSULT NOTE ATTENDING: Dr. Bello Erick Clement is a 35 y.o. male who presents to see us in consultation today at the request of Emergency Department. CHIEF COMPLAINT: Left anterior inferior iliac spine fracture, coccyx fracture HPI: Erick Clement is a 35 y.o. male who presents 2 days s/p jump from bridge over 100 [place] [address] river with left AIIS fracture, coccyx fracture. Patient was interacting with friends, jumping recreationally from bridge. He was doing well after jump, was able to tube down river with friends and weight bear. He comes into ED today due to numbness/tingling in his RUE, on imaging found to have T1 and L1 vertebral body fractures being managed by Neurosurgery. Orthopaedics consulted due to Left anterior inferior iliac spine fracture and coccyx fracture. On exam patient complaining primarily of back pain. He denies any pain in his pelvis, hip, lower extremities. He has been able to ambulate without issue. Hedoes endorse intermittent numbness/tingling in his right arm though he does not have it currently onexam. No chest pain, shortness of breath, nausea/vomiting, other issues. FOCUSED REVIEW OF SYSTEMS: as above. Active Hospital Problems Diagnosis ??? Closed avulsion fracture of left anterior inferior iliac spine Resolved Hospital Problems No resolved problems to display. There are no active non-hospital problems to display for this patient. FAMILY HISTORY: Negative for bleeding/clotting disorders or anesthetic complications. SOCIAL HISTORY: Social History Tobacco Use Smoking Status Not on file Social History Substance and Sexual Activity Alcohol Use None Illicits: As above Living Situation: Lives in [facility] MEDICATIONS: No current facility-administered medications for this encounter. No current outpatient medications on file. OBJECTIVE: No intake or output data in the 24 hours ending 10/10/20 0423 Body mass index is 27.26 kg/m??. PHYSICAL EXAM: Gen: NAD, resting comfortably, AOx3 HEENT: NC, AT CV: RRR assessed peripherally Pulm: No incr WOB on RA Skin: Intact Psych: Nl mood and affect Right Lower Extremity Exam: No TTP pelvis, hip, femur, knee, tib/fib, ankle, foot Painless range of motion of Hip / knee / ankle No effusion in knee / ankle No ecchymosis, erythema, or overlying skin changes. Sensation intact to light touch in Saphenous/Sural/LFC/Femoral/MP/LP/T/DP/SP distributions Motor intact (5/5) hip flexion/extension, knee flexion/extension, ankle flexion/extension, EHL/FHL/TA Brisk capillary refill distally 2+ DP/PT pulses Left Lower Extremity Exam: No TTP pelvis, hip, femur, knee, tib/fib, ankle, foot Painless range of motion of Hip / knee / ankle No effusion in knee / ankle No ecchymosis, erythema, or overlying skin changes. Sensation intact to light touch in Saphenous/Sural/LFC/Femoral/MP/LP/T/DP/SP distributions Motor intact (5/5) hip flexion/extension, knee flexion/extension, ankle flexion/extension, EHL/FHL/TA Brisk capillary refill distally 2+ DP/PT pulses LABS: Lab Results Component Value Date NA 139 10/06/2020 K 4.0 10/06/2020 CL 106 10/06/2020 CO2 22 10/06/2020 BUN 9 (L) 10/06/2020 CREATININE 0.89 10/06/2020 GLUCOSE 100 10/06/2020 CALCIUM 8.7 10/06/2020 Lab Results Component Value Date WBC 8.1 10/06/2020 HGB 14.2 10/06/2020 HCT 39.4 (L) 10/06/2020 MCV 89.5 10/06/2020 PLATELET 155 10/06/2020 IMAGING: Xray Pelvis 3 Views No acute fracture or dislocation CT CAP Avulsion fracture of left anterior inferior iliac spine. Minimally displaced coccyx fracture. ASSESSMENT/RECOMMENDATIONS: 35 y.o. male presenting 2 days s/p jump from bridge over 100 [place] river with left AIIS fracture, coccyx fracture. Other injuries include spine fractures being managed by NSGY. Patient asymptomatic in terms of AIIS, coccyx. Recommend WBAT and donut for comfort if needed. Patient may follow up with Orthopedics as needed. - Activity- WBAT b/l lower extremities - DVT prophylaxis- per primary - Imaging needed- None - Follow-up- PRN - Discuss with Dr. Bello I have contacted the referring team and discussed our evaluation and recommendations as listed above. The orthopaedic service will continue to follow this patient. Thank you for the opportunity to assist in their evaluation and treatment. Please page Orthopaedic consults ([phone]) with any questions or co ncerns. ?? Conchis Hughes MD P. [phone] 10/10/20 4:23 AM Future Appointments Date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 Results for this EDT procedure are i n the results section. BLUE TUBE HOLD STAT 10/06/2020 3:00 PM Results for this EDT procedure are i n the results section. HC CBC,PLT & AUTO STAT 10/06/2020 3:00 PM DIFF EDT HEPATIC FUNCTION STAT 10/06/2020 3:00 PM Resul ts for this PANEL EDT procedure are i n the results section. BASIC METABOLIC PANEL STAT 10/06/2020 3:00 PM Results for this (NON-FASTING) EDT procedure are in the results section. FILM LIBRARY STORAGE STAT 10/04/2020 12:10 Res ults for this ONLY CT HEAD AND AM EDT procedure a re in SPINE the results section. FILM LIBRARY STORAGE STAT 10/04/2020 12:05 Res ults for this ONLY CT SPINE AM EDT procedure are in the results section. FILM LIBRARY STORAGE STAT 10/04/2020 12:00 Res ults for this ONLY CT CHEST ABDOMEN AM EDT proced ure are in PELVIS the results section. documented in this encounter Results XR Lumbar Spine 2 Or 3 Views (Generic) (10/07/2020 12:51 AM EDT) Anatomical Region Laterality Modality L-spine N/A Digital Radiography Specimen (Source) Anatomical Location Collection Method / Collectio n Time Received Time / Laterality Volume Impressions 10/07/2020 1:12 AM EDT 1. ??No spondylolisthesis. 2. ??Unchanged morphology of T1 and L1 f ractures with standing. Thank you for letting us participate in the care of this patient. ??If you are a health care provider and have any questi ons regarding this report, please contact the number below. ??For patients who have questions please contact the health foster care therapist that requested your imaging first. ? Electronically signed by: Juan Carlos mares MD, [facility] ([phone]), at 10/07/2020 1:12 AM Narrative 10/07/2020 1:12 AM EDT EXAMINATION: XR THORACIC SPINE 2 VIEWS, XR LUMBAR SPINE 2 OR 3 VIEWS (GENERIC) CLINICAL HISTORY: standing without back support, eval T1 fracture TECHNIQUE: 2 views of the thoracic spine, 4 images. Standing views. AP and lateral views of the lumbar spine , 2 images. Standing views. COMPARISON: MRI of the cervical, thoracic and lumbar spine 10/06/2020. CT of the thoracic and lumbar spine 2020 FINDINGS: Normal alignment of the thoracic spine. No spondylolisthesis. Redemonstration of the subtle anterior superior endplate fr acture of T1. No interval change in morphology. The upper thoracic spine is not well evaluated due to superimposing soft tissues and left clavicle hardware. Normal alignment of the lumbar spine. No spondylolisthesis. Redemonstration of the fracture involving the anterior supe rior endplates of L1. Unchanged morphology of the fracture with unchange d approximately 35-40% loss of anterior vertebral body height. Procedure Note Juan Carlos Jacobs MD - 10/07/2020Fo rmatting of this note might be different from the original. EXAMINATION: XR THORACIC SPINE 2 VIEWS, XR LUMBAR SPINE 2 OR 3 VIEWS (GENERIC) CLINICAL HISTORY: standing without back support, eval T1 fracture TECHNIQUE: 2 views of the thoracic spine, 4 images. Standing views. AP and lateral views of the lumbar spine , 2 images. Standing views. COMPARISON: MRI of the cervical, thoracic and lumbar spine 10/06/2020. CT of the thoracic and lumbar spine 2020 FINDINGS: Normal alignment of the thoracic spine. No spondylolisthesis. Redemonstration of the subtle anterior superior endplate fr acture of T1. No interval change in morphology. The upper thoracic spine is not well evaluated due to superimposing soft tissues and left clavicle hardware. Normal alignment of the lumbar spine. No spondylolisthesis. Redemonstration of the fracture involving the anterior supe rior endplates of L1. Unchanged morphology of the fracture with unchange d approximately 35-40% loss of anterior vertebral body height. IMPRESSION 1. No spondylolisthesis. 2. Unchanged morphology of T1 and L1 fra ctures with standing. Thank you for letting us participate in the care of this patient. If you are a health care provider and have any questi ons regarding this report, please contact the number below. For patients w ho have questions please contact the health foster care therapist that requested your imaging first. Electronically signed by: Juan Carlos mares MD, [facility] ([phone]), at 10/07/2020 1:12 AM Elly Thayern RESIDENTIAL TREATMENT STAFF IMG DX ORDERABLES XR Thoracic Spine 2 views (10/07/2020 12:51 AM EDT) Anatomical Region Laterality Modality N/A Digital Radiography Specimen (Source) Anatomical Location Collection Method / Collectio n Time Received Time / Laterality Volume Impressions 10/07/2020 1:12 AM EDT 1. ??No spondylolisthesis. 2. ??Unchanged morphology of T1 and L1 f ractures with standing. Thank you for letting us participate in the care of this patient. ??If you are a health care provider and have any questi ons regarding this report, please contact the number below. ??For patients who have questions please contact the health foster care therapist that requested your imaging first. ? Electronically signed by: Juan Carlos mares MD, [facility] ([phone]), at 10/07/2020 1:12 AM Narrative 10/07/2020 1:12 AM EDT EXAMINATION: XR THORACIC SPINE 2 VIEWS, XR LUMBAR SPINE 2 OR 3 VIEWS (GENERIC) CLINICAL HISTORY: standing without back support, eval T1 fracture TECHNIQUE: 2 views of the thoracic spine, 4 images. Standing views. AP and lateral views of the lumbar spine , 2 images. Standing views. COMPARISON: MRI of the cervical, thoracic and lumbar spine 10/06/2020. CT of the thoracic and lumbar spine 2020 FINDINGS: Normal alignment of the thoracic spine. No spondylolisthesis. Redemonstration of the subtle anterior superior endplate fr acture of T1. No interval change in morphology. The upper thoracic spine is not well evaluated due to superimposing soft tissues and left clavicle hardware. Normal alignment of the lumbar spine. No spondylolisthesis. Redemonstration of the fracture involving the anterior supe rior endplates of L1. Unchanged morphology of the fracture with unchange d approximately 35-40% loss of anterior vertebral body height. Procedure Note Juan Carlos Jacobs MD - 10/07/2020Fo rmatting of this note might be different from the original. EXAMINATION: XR THORACIC SPINE 2 VIEWS, XR LUMBAR SPINE 2 OR 3 VIEWS (GENERIC) CLINICAL HISTORY: standing without back support, eval T1 fracture TECHNIQUE: 2 views of the thoracic spine, 4 images. Standing views. AP and lateral views of the lumbar spine , 2 images. Standing views. COMPARISON: MRI of the cervical, thoracic and lumbar spine 10/06/2020. CT of the thoracic and lumbar spine 2020 FINDINGS: Normal alignment of the thoracic spine. No spondylolisthesis. Redemonstration of the subtle anterior superior endplate fr acture of T1. No interval change in morphology. The upper thoracic spine is not well evaluated due to superimposing soft tissues and left clavicle hardware. Normal alignment of the lumbar spine. No spondylolisthesis. Redemonstration of the fracture involving the anterior supe rior endplates of L1. Unchanged morphology of the fracture with unchange d approximately 35-40% loss of anterior vertebral body height. IMPRESSION 1. No spondylolisthesis. 2. Unchanged morphology of T1 and L1 fra ctures with standing. Thank you for letting us participate in the care of this patient. If you are a health care provider and have any questi ons regarding this report, please contact the number below. For patients w ho have questions please contact the health foster care therapist that requested your imaging first. Electronically signed by: Juan Carlos mares MD, [facility] ([phone]), at 10/07/2020 1:12 AM Elly Blair RESIDENTIAL TREATMENT STAFF IMG DX ORDERABLES XR Pelvis Min 3 Views (10/06/2020 11:40 PM EDT) Anatomical Region Laterality Modality Pelvis N/A Digital Radiography Specimen (Source) Anatomical Location Collection Method / Collectio n Time Received Time / Laterality Volume Impressions 10/07/2020 1:26 AM EDT 1. ??Intact pelvic ring and bilateral proximal femurs. 2. ??Small, nondisplaced coccyx fracture better characterized on recent CT. Preliminary report signed by: Steven Moran at 10/07/2020 12:56 AM I have personally reviewed the image(s) and the resident's interpretation and agree with the findings, Erick Fernandez MD at 10/07/2020 1:26 AM Thank you for letting us participate in the care of this patient. ??If you are a health care provider and have any questi ons regarding this report, please contact the number below. ??For patients who have questions please contact the health foster care therapist that requested your imaging first. ? Electronically signed by: Erick Fernandez MD, [facility] ([phone]), at 10/07/2020 1:26 AM Narrative 10/07/2020 1:26 AM EDT EXAMINATION: XR PELVIS MIN 3 VIEWS CLINICAL HISTORY: Include inlet and outl et views TECHNIQUE: 3 views of the pelvis COMPARISON: CT abdomen/pelvis 10/04/2020 FINDINGS: The pelvic ring is intact. No femoral fr actures. Small nondisplaced coccyx fracture or characterized on recent CT. Joint spaces are preserved. No radiopaque foreign bodies. Procedure Note Erick Fernandez MD - 10/07/2020Formatt ing of this note might be different from the original. EXAMINATION: XR PELVIS MIN 3 VIEWS CLINICAL HISTORY: Include inlet and outl et views TECHNIQUE: 3 views of the pelvis COMPARISON: CT abdomen/pelvis 10/04/2020 FINDINGS: The pelvic ring is intact. No femoral fr actures. Small nondisplaced coccyx fracture or characterized on recent CT. Joint spaces are preserved. No radiopaque foreign bodies. IMPRESSION 1. Intact pelvic ring and bilateral prox imal femurs. 2. Small, nondisplaced coccyx fracture b oriana characterized on recent CT. Preliminary report signed by: Steven Moran at 10/07/2020 12:56 AM I have personally reviewed the image(s) and the resident's interpretation and agree with the findings, Erick Fernandez MD at 10/07/2020 1:26 AM Thank you for letting us participate in the care of this patient. If you are a health care provider and have any questi ons regarding this report, please contact the number below. For patients w ho have questions please contact the health foster care therapist that requested your imaging first. Electronically signed by: Erick Fernandez MD, [facility] ([phone]), at 10/07/2020 1:26 AM Jordan Henderson MD IMG DX ORDERABLES XR Clavicle Left (Generic) (10/06/2020 11:40 PM EDT) Anatomical Region Laterality Modality Shoulder, Chest Left Digital Radiography Specimen (Source) Anatomical Location Collection Method / Collectio n Time Received Time / Laterality Volume Impressions 10/07/2020 1:05 AM EDT Status post fixation of left mid clavicle. No evidence of complication or fracture. Thank you for letting us participate in the care of this patient. ??If you are a health care provider and have any questi ons regarding this report, please contact the number below. ??For patients who have questions please contact the health foster care therapist that requested your imaging first. ? Electronically signed by: Juan Carlos mares MD, [facility] ([phone]), at 10/07/2020 1:05 AM Narrative 10/07/2020 1:05 AM EDT EXAMINATION: XR CLAVICLE LEFT (GENERIC) CLINICAL HISTORY: Left clavicle tenderne ss TECHNIQUE: 2 views LEFT clavicle COMPARISON: None FINDINGS: Status post plate and screw fixation of the mid left clavicle. Hardware is intact. No fracture of the clavicle. Nor mal alignment at the acromioclavicular joint. Normal appearance of the glenohum eral joint on these nondedicated views of this joint. Visualized left upper hem ithorax is unremarkable. Procedure Note Juan Carlos Jacobs MD - 10/07/2020Fo rmatting of this note might be different from the original. EXAMINATION: XR CLAVICLE LEFT (GENERIC) CLINICAL HISTORY: Left clavicle tenderne ss TECHNIQUE: 2 views LEFT clavicle COMPARISON: None FINDINGS: Status post plate and screw fixation of the mid left clavicle. Hardware is intact. No fracture of the clavicle. Nor mal alignment at the acromioclavicular joint. Normal appearance of the glenohum eral joint on these nondedicated views of this joint. Visualized left upper hem ithorax is unremarkable. IMPRESSION Status post fixation of left mid clavicl e. No evidence of complication or fracture. Thank you for letting us participate in the care of this patient. If you are a health care provider and have any questi ons regarding this report, please contact the number below. For patients w ho have questions please contact the health foster care therapist that requested your imaging first. Electronically signed by: Juan Carlos mares MD, [facility] ([phone]), at 10/07/2020 1:05 AM Jordan Henderson MD IMG DX ORDERABLES MRI Lumbar Spine wo Contrast (Generic) (10/06/2020 10:37 PM EDT) Anatomical Region Laterality Modality L-spine Magnetic Resonance Specimen (Source) Anatomical Location Collection Method / Collectio n Time Received Time / Laterality Volume Impressions 10/07/2020 12:54 AM EDT 1. ??T1 vertebral body fracture involving the anterior superior endplate. 2. ??L1 vertebral body fracture involvin g the anterior and superior endplate with extension of the fracture to the posteri or cortex where there is minimal posterior buckling of the cortex. 3. ??No traumatic disc herniations. 4. ??No ligamentous injury in the cervic al spine. 5. ??Trace left ventral epidural hematom a within the low cervical spine with no mass effect upon the spinal cord. This r epresents a change from the preliminary resident report. 6. ??No spinal cord signal abnormalities in the cervical, thoracic or lumbar spine. 7. ??No significant central canal or chris ral foraminal narrowing. Preliminary report signed by: Jarrod weiss at 10/06/2020 11:43 PM I have personally reviewed the image(s) and the resident's interpretation and agree with the findings, Juan Carlos medrano MD at 10/07/2020 12:54 AM Thank you for letting us participate in the care of this patient. ??If you are a health care provider and have any questi ons regarding this report, please contact the number below. ??For patients who have questions please contact the health foster care therapist that requested your imaging first. ? Electronically signed by: Juan Carlos mares MD, [facility] ([phone]), at 10/07/2020 12:54 AM Narrative 10/07/2020 12:54 AM EDT EXAMINATION: MRI CERVICAL SPINE WO CONTRAST (GENERIC), MRI THORACIC SPINE WO CONTRAST (GENERIC), MRI LUMBAR SPINE WO CONTRAST (GENERIC) CLINICAL HISTORY: 35-year-old male who p resents after jumping off a 100 foot bridge with neck and back pain and an ac [place] T1 and L1 fracture TECHNIQUE: MRI of the cervical, thoracic, and lumba r spine performed without intravenous contrast administration. COMPARISON: CT of the cervical, thoracic, and lumbar spine on 10/04/2020 FINDINGS: CERVICAL SPINE: Normal alignment without spondylolisthes is. Vertebral body heights and disc space heights are well-maintained. No ab normal marrow space or disc space signal to suggest fracture, discitis/osteomyeli tis or marrow replacing process. There is abnormal thin eccentric left-sided mi ldly T1 hyperintense and T2 hyperintense signal within the left ventral epidural space (axial series 8 image 34, sagittal series 5 image 7) consistent with trace ventral epidural hematoma. This hematoma lifts the dura however does not contact the spinal cord. There is no significant mass effect upon the cervical spinal cor d. The anterior longitudinal ligament, post erior longitudinal ligament and ligamentum flavum are intact. No prevert ebral edema. Normal signal within the soft tissues of the neck. Normal carotid and vertebral artery flow voids within the [id number]. Normal spinal cord signal. Visualized po sterior fossa is unremarkable. THORACIC SPINE: Normal alignment without spondylolisthes is. Focal abnormal T1 hypointense and T2 hyperintense marrow signal at the anteri or superior corner of the T1 vertebral body consistent with microtrabecular fra cture, with 10% loss of anterior vertebral body height compared to adjace nt segments. No buckling or deformation of the posterior cortex. No disc extrusi ons or protrusions. Normal spinal cord signal. Eccentric signal within the left ventral epidural space at the cervicothoracic junction consistent with trace epidural hematoma (sagittal series 10 image 14). No significant degenerative disc disease . Several endplate Schmorl's nodes are pre sent in the lower thoracic spine. Normal signal within the soft tissues of the paraspinal thorax. LUMBAR SPINE: Normal alignment without spondylolisthes is. There is a fracture involving the L1 level with fracture line extending from the anterior to the margin of the posterior cortex. There is mild buckling of the posterior cortex without retropulsion. There is approximately 40% loss of anterior vertebral body height with abnormal marrow edema throughout th e vertebral body.Loss of normal T2 hyperintensity in the L1-L2 disc. No dis c protrusion or extrusion. No abnormal cord signal. The conus medul margareth terminates at the superior endplate of the L2 vertebral body. No epidural collections. No significant degenerative disc disease. No significant spinal canal narrowing or ne ural foraminal stenosis. Unremarkable retroperitoneum. Normal sig nal within the soft tissues of the paraspinal lumbar region. Procedure Note Juan Carlos Jacobs MD - 10/07/2020Fo rmatting of this note might be different from the original. EXAMINATION: MRI CERVICAL SPINE WO CONTR AST (GENERIC), MRI THORACIC SPINE WO CONTRAST (GENERIC), MRI LUMBAR SPINE WO CONTRAST (GENERIC) CLINICAL HISTORY: 35-year-old male who p resents after jumping off a 100 foot bridge with neck and back pain and an ac [place] T1 and L1 fracture TECHNIQUE: MRI of the cervical, thoracic, and lumba r spine performed without intravenous contrast administration. COMPARISON: CT of the cervical, thoracic, and lumbar spine on 10/04/2020 FINDINGS: CERVICAL SPINE: Normal alignment without spondylolisthes is. Vertebral body heights and disc space heights are well-maintained. No ab normal marrow space or disc space signal to suggest fracture, discitis/osteomyeli tis or marrow replacing process. There is abnormal thin eccentric left-sided mi ldly T1 hyperintense and T2 hyperintense signal within the left ventral epidural space (axial series 8 image 34, sagittal series 5 image 7) consistent with trace ventral epidural hematoma. This hematoma lifts the dura however does not contact the spinal cord. There is no significant mass effect upon the cervical spinal cor d. The anterior longitudinal ligament, post erior longitudinal ligament and ligamentum flavum are intact. No prevert ebral edema. Normal signal within the soft tissues of the neck. Normal carotid and vertebral artery flow voids within the [id number]. Normal spinal cord signal. Visualized po sterior fossa is unremarkable. THORACIC SPINE: Normal alignment without spondylolisthes is. Focal abnormal T1 hypointense and T2 hyperintense marrow signal at the anteri or superior corner of the T1 vertebral body consistent with microtrabecular fra cture, with 10% loss of anterior vertebral body height compared to adjace nt segments. No buckling or deformation of the posterior cortex. No disc extrusi ons or protrusions. Normal spinal cord signal. Eccentric signal within the left ventral epidural space at the cervicothoracic junction consistent with trace epidural hematoma (sagittal series 10 image 14). No significant degenerative disc disease . Several endplate Schmorl's nodes are pre sent in the lower thoracic spine. Normal signal within the soft tissues of the paraspinal thorax. LUMBAR SPINE: Normal alignment without spondylolisthes is. There is a fracture involving the L1 level with fracture line extending from the anterior to the margin of the posterior cortex. There is mild buckling of the posterior cortex without retropulsion. There is approximately 40% loss of anterior vertebral body height with abnormal marrow edema throughout th e vertebral body.Loss of normal T2 hyperintensity in the L1-L2 disc. No dis c protrusion or extrusion. No abnormal cord signal. The conus medul margareth terminates at the superior endplate of the L2 vertebral body. No epidural collections. No significant degenerative disc disease. No significant spinal canal narrowing or ne ural foraminal stenosis. Unremarkable retroperitoneum. Normal sig nal within the soft tissues of the paraspinal lumbar region. IMPRESSION 1. T1 vertebral body fracture involving the anterior superior endplate. 2. L1 vertebral body fracture involving the anterior and superior endplate with extension of the fracture to the posteri or cortex where there is minimal posterior buckling of the cortex. 3. No traumatic disc herniations. 4. No ligamentous injury in the cervical spine. 5. Trace left ventral epidural hematoma within the low cervical spine with no mass effect upon the spinal cord. This r epresents a change from the preliminary resident report. 6. No spinal cord signal abnormalities i n the cervical, thoracic or lumbar spine. 7. No significant central canal or neura l foraminal narrowing. Preliminary report signed by: Jarrod weiss at 10/06/2020 11:43 PM I have personally reviewed the image(s) and the resident's interpretation and agree with the findings, Juan Carlos medrano MD at 10/07/2020 12:54 AM Thank you for letting us participate in the care of this patient. If you are a health care provider and have any questi ons regarding this report, please contact the number below. For patients w ho have questions please contact the health foster care therapist that requested your imaging first. Electronically signed by: Juan Carlos mares MD, [facility] ([phone]), at 10/07/2020 12:54 AM Elly Blair RESIDENTIAL TREATMENT STAFF IMG MRI ORDERABLES MRI Thoracic Spine wo Contrast (Generic) (10/06/2020 10:37 PM EDT) Anatomical Region Laterality Modality T-spine Magnetic Resonance Specimen (Source) Anatomical Location Collection Method / Collectio n Time Received Time / Laterality Volume Impressions 10/07/2020 12:54 AM EDT 1. ??T1 vertebral body fracture involving the anterior superior endplate. 2. ??L1 vertebral body fracture involvin g the anterior and superior endplate with extension of the fracture to the posteri or cortex where there is minimal posterior buckling of the cortex. 3. ??No traumatic disc herniations. 4. ??No ligamentous injury in the cervic al spine. 5. ??Trace left ventral epidural hematom a within the low cervical spine with no mass effect upon the spinal cord. This r epresents a change from the preliminary resident report. 6. ??No spinal cord signal abnormalities in the cervical, thoracic or lumbar spine. 7. ??No significant central canal or chris ral foraminal narrowing. Preliminary report signed by: Jarrod weiss at 10/06/2020 11:43 PM I have personally reviewed the image(s) and the resident's interpretation and agree with the findings, Juan Carlos medrano MD at 10/07/2020 12:54 AM Thank you for letting us participate in the care of this patient. ??If you are a health care provider and have any questi ons regarding this report, please contact the number below. ??For patients who have questions please contact the health foster care therapist that requested your imaging first. ? Electronically signed by: Juan Carlos mares MD, [facility] ([phone]), at 10/07/2020 12:54 AM Narrative 10/07/2020 12:54 AM EDT EXAMINATION: MRI CERVICAL SPINE WO CONTRAST (GENERIC), MRI THORACIC SPINE WO CONTRAST (GENERIC), MRI LUMBAR SPINE WO CONTRAST (GENERIC) CLINICAL HISTORY: 35-year-old male who p resents after jumping off a 100 foot bridge with neck and back pain and an ac [place] T1 and L1 fracture TECHNIQUE: MRI of the cervical, thoracic, and lumba r spine performed without intravenous contrast administration. COMPARISON: CT of the cervical, thoracic, and lumbar spine on 10/04/2020 FINDINGS: CERVICAL SPINE: Normal alignment without spondylolisthes is. Vertebral body heights and disc space heights are well-maintained. No ab normal marrow space or disc space signal to suggest fracture, discitis/osteomyeli tis or marrow replacing process. There is abnormal thin eccentric left-sided mi ldly T1 hyperintense and T2 hyperintense signal within the left ventral epidural space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
--- OUTSIDE RECORDS SUMMARY | 2021-10-23 00:10 | XMS_ITS | Encounter Summary ---
:1985 Author Organization [facility] [place] [address] Care Team Providers Name Role Phone None Primary Care Provider Unavailable Encounter Details Date Type Department Care Team Description 12/02/2020 Telephone Neurosurgery at [facility] Gail Paz [facility] [place] [address] Social History Tobacco Use Types Packs/Day Years Used Date Former Smoker Smokeless Tobacco: Current User Chew Alcohol Use Standard Drinks/Week Comments Yes 35 (1 standard drink = 0.6 oz pure alcoh ol) Sex Assigned at Date Recorded Not on file documented as of this encounter Miscellaneous Notes Telephone Encounter - Gail Paz RN - 12/02/2020 12:53 PM EDT Caller: Katie (patients ) Reason for call: Intermittent shooting pains down legs and numbness of feet Difficulty with erections/maintaining erections Assessment/Plan: 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 Patient doesn't know if he should do PT, need to be seen or anote to stop working. I advised that he take it easy with work and I will let him know if we want any further imagining regarding his new symptoms since last visit. documented in this encounter Plan of Treatment Not on filedocumented as of this encounter Visit Diagnoses Not on filedocumented in this encounter Care Teams Grader Green Meat Relationship Specialty Start Date End Date None PCP - General 10/06/20 None documented as of this encounter
--- OUTSIDE RECORDS SUMMARY | 2021-10-23 00:10 | XMS_ITS | Encounter Summary ---
:1985 Author Organization [facility] [place] [address] Care Team Providers Name Role Phone None Primary Care Provider Unavailable Encounter Details Date Type Department Care Team Description 10/10/2020 Telephone [place] [facility] [place] [place] [address] Social History Tobacco Use Types Packs/Day Years Used Date Never Assessed Sex Assigned at Date Recorded Not on file documented as of this encounter Miscellaneous Notes Telephone Encounter - Mitzi Bourgeois APRN - 10/10/2020 12:20 PM EDT Called Erick who reports pain ranges from being localized to pelvis but also gets burning and shooting pains in legs with certain positions. Has been remaining fairly inactive, wearing brace when up. Wearing cervical collar at all times. Taking ibuprofen 2 tabs alternating with tylenol. Advised as follows: 1. Increase iburpofen to 800mg q6h. 2. Increase tylenol to 1g q6h, alternating with ibuprofen. 3. Add gabapentin 300mg tid. Call if insufficient relief, as dose can be increased. Erick states understanding of plan. Telephone Encounter - Lissett Shore - 10/10/2020 11:59 AM EDT Caller: Patient Best number to reach caller: [phone] Reason for call: Erick calling today to discuss pain levels and ask if a script may be written Recent Surgery?: No documented in this encounter Plan of Treatment Not on filedocumented as of this encounter Visit Diagnoses Not on filedocumented in this encounter Care Teams Guest Relations Receptionist Relationship Specialty Start Date End Date None PCP - General 10/06/20 None documented as of this encounter
--- OUTSIDE RECORDS SUMMARY | 2021-10-23 00:10 | XMS_ITS | Encounter Summary ---
:1985 Author Organization [facility] Address [facility] [place] [address] Care Team Providers Name Role Phone None Primary Care Provider Unavailable Encounter Details Date Type Department Care Team Description 12/02/2020 Orders Only Neurosurgery at [facility] Gail Paz Closed wedge [facility] Conrado, RN compressi on fracture Drive of L1 vertebra with CAMILO [place] [phone] routine healing, subsequent enco unter Social History Tobacco Use Types Packs/Day Years [...] Lumbar Spine 2 Or 3 Views (Generic) (12/29/2020 10:47 AM EDT) Anatomical Region Laterality Modality L-spine N/A Digital Radiography Specimen (Source) Anatomical Location Collection Method / Collectio n Time Received Time / Laterality Volume Impressions 12/29/2020 1:26 PM EDT Unchanged L1 moderate compression. Thank you for letting us participate in the care of this patient. ??If you are a health care provider and have any questi ons regarding this report, please contact the number below. ??For patients who have questions please contact the health aged or disabled carer that requested your imaging first. ? Electronically signed by: Agusto Montelongo MD , [facility] ([phone]), at 12/29/2020 1:26 PM Narrative 12/29/2020 1:26 PM EDT EXAMINATION: XR LUMBAR SPINE 2 OR 3 VIEWS (GENERIC) CLINICAL HISTORY: L1 fracture follow-up TECHNIQUE: 2 views of the lumbar spine COMPARISON: September 2020 FINDINGS: Moderate compression of L1 vertebral bod y is unchanged. No spondylolisthesis. Disc space heights are intact. There is a lumbarized S1 segment. Procedure Note Agusto Montelongo MD - 12/29/2020Formatting o f this note might be different from the original. EXAMINATION: XR LUMBAR SPINE 2 OR 3 VIEW S (GENERIC) CLINICAL HISTORY: L1 fracture follow-up TECHNIQUE: 2 views of the lumbar spine COMPARISON: September 2020 FINDINGS: Moderate compression of L1 vertebral bod y is unchanged. No spondylolisthesis. Disc space heights are intact. There is a lumbarized S1 segment. IMPRESSION Unchanged L1 moderate compression. Thank you for letting us participate in the care of this patient. If you are a health care provider and have any questi ons regarding this report, please contact the number below. For patients w ho have questions please contact the health aged or disabled carer that requested your imaging first. Electronically signed by: Agusto Montelongo MD , [facility] ([phone]), at 12/29/2020 1:26 PM Jm Mireles MD IMG DX ORDERABLES documented in this encounter Visit Diagnoses Diagnosis Closed wedge compression fracture of L1 vertebra with routine healing, subsequent encounter Closed wedge compression fracture of L1 vertebra with routine healing, subsequent encounter documented in this encounter Care Teams Mine Shifter Relationship Specialty Start Date End Date None PCP - General 10/06/20 None documented as of this encounter
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
--- OUTSIDE RECORDS SUMMARY | 2021-10-23 00:10 | XMS_ITS | Encounter Summary ---
:1985 Author Organization [facility] Address [facility] [place] [address] Care Team Providers Name Role Phone None Primary Care Provider Unavailable Reason for Visit Reason Onset Date Comments Questions 10/07/2020 ? need for additiona l imaging with 2 week office check Encounter Details Date Type Department Care Team Description 10/07/2020 Telephone Neurosurgery at [facility] Kim Allison MD Questions (? need for [facility] [place] [address] [address] with 2 week office [phone] NEUROSURGERY check) [place], [place] [address] Social History Tobacco Use Types Packs/Day Years Used Date Never Assessed Sex Assigned at Date Recorded Not on file documented as of this encounter Miscellaneous Notes Telephone Encounter - Hernan Laughlin - 10/09/2020 8:36 AM EDT Called pt's home # but no answer then disc (no addl #s on file). Pt scheduled for 2 wk f/u OV with DPS on 10/23/2020 (no further imaging needed per [facility]). Mailed appt card. Closing encounter. Telephone Encounter - Linda Mccoy RN - 10/08/2020 11:10 AM EDT Scheduled to be seen in Clinic on 10/23/20 as Follow up from ED visit on 10/06/20. 10/07/20 - Imaging in Medical Record - ordered by Elly Blair APRN Questioning if further imaging needed at the time of next office visit. Concerns communicated to Dr Allison via In Basket. Telephone Encounter - Hernan Laughlin - 10/08/2020 10:06 AM EDT Pt scheduled for 2 wk f/u OV with DPS on 10/23/2020 RN, I was reviewing pt's discharge notes & I wanted to confirm whether or not add'l imaging was needed when pt has f/u appt in 2 wks. Please advise. Thank you! Imani Telephone Encounter - Kim Cabral - 10/07/2020 10:07 AM EDT Images from the original note were not included. Elly Blair APRN P [facility] Neurosurgery Swatcher ED patient, needs 2 week appointment. ??Attending on-call was Dr. Allison. ??I am not sure if she wouldlike to see the patient or if she would like one of the APPs to see him in follow up. ?? ~~~~~~~~~~~~~~~~~~~~~~~~~~~~~~~~~~~~~~~~~~~~~~~~~~~~~~~~ Dr. Allison, Would you like pt scheduled w you or an AP for f/u? Thanks! Sabi documented in this encounter Plan of Treatment Not on filedocumented as of this encounter Visit Diagnoses Not on filedocumented in this encounter Care Teams Lining Layer Relationship Specialty Start Date End Date None PCP - General 10/06/20 None documented as of this encounter
--- OUTSIDE RECORDS SUMMARY | 2021-10-23 00:10 | XMS_ITS | Clinical Summary ---
:1985 Author Organization [facility] [place] [address] Care Team Providers Name Role Phone None Primary Care Provider Unavailable Allergies No known active allergies Medications Medication Sig Dispensed Refills Start Date End Date Status multivitamin Take 1 tablet by 0 Active (THERAGRAN) Tablet mouth daily. tadalafiL (CIALIS) 5 Take 5 mg by mouth 0 Active mg Tablet as needed for Erectile Dysfunction. Active Problems Problem Noted Date Closed avulsion fracture of left anterior inferior moi ac spine 10/10/2020 Social History Tobacco Use Types Packs/Day Years Used Date Former Smoker Smokeless Tobacco: Current User Chew Alcohol Use Standard Drinks/Week Comments Yes 35 (1 standard drink = 0.6 oz pure alcoh ol) Sex Assigned at Date Recorded Not on file Last Filed Vital Signs Vital Sign Reading Time Taken Comments Blood Pressure 129/74 12/29/2020 11:13 AM EDT Pulse 53 12/29/2020 11:13 AM EDT Temperature 37.2 ??C (99 ??F) 12/29/2020 11:13 AM EDT Respiratory Rate 18 12/29/2020 11:13 AM EDT Oxygen Saturation 99% 10/07/2020 3:36 AM EDT Inhaled Oxygen Concentration - - Weight 82.3 kg (181 lb 6.4 oz) 12/29/2020 11:13 AM EDT Height 177.8 cm (5' 10) 12/29/2020 11:13 AM EDT Body Mass Index 26.03 12/29/2020 11:13 AM EDT Plan of Treatment Health Maintenance Due Date Last Done Comments Covid-19 Vaccine (#1) 09/09/1992 HIV screen 09/09/2005 Hepatitis C Screening 09/09/2005 Tdap adult 09/09/2006 Tetanus vaccine 09/09/2006 Influenza (Flu) vaccine (1 of 1 - Influenza standard 10/29/2021 series) Care Teams Composition Mixer Relationship Specialty Start Date End Date None PCP - General 10/06/20 None
--- OUTSIDE RECORDS SUMMARY | 2021-10-23 00:10 | XMS_ITS | Encounter Summary ---
:1985 Author Organization [facility] Address [address] [facility] [place] [address] Care Team Providers Name Role Phone None Primary Care Provider Unavailable Encounter Details Date Type Department Care Team Description 12/29/2020 Hospital Encounter [place] [facility] [place]m Mireles Closed wedge [address] Abel MD compression fracture [place], [place] [facility] of L1 vertebra with [id number] CENTER routine healing, NEUROSURGERY subsequent encounter [place], [place] [id number] Social History Tobacco Use Types Packs/Day Years Used Date Former Smoker Smokeless Tobacco: Current User Chew Alcohol Use Standard Drinks/Week Comments Yes 35 (1 standard drink = 0.6 oz pure alcoh ol) Sex Assigned at Date Recorded Not on file documented as of this encounter Medications at Time of Discharge Medication Sig Dispensed Refills Start Date End Date multivitamin (THERAGRAN) Take 1 tablet by 0 Tablet mouth daily. tadalafiL (CIALIS) 5 mg Take 5 mg by mouth as 0 Tablet needed for Erectile Dysfunction. documented as of this encounter Plan of Treatment Not on filedocumented as of this encounter Procedures Procedure Name Priority Date/Time Associated Diagnosis Comme nts XR LUMBAR SPINE 2 Routine 12/29/2020 10:47 AM Closed wedge Res ults for this OR 3 VIEWS EDT compression fracture procedu re are in of L1 vertebra with the resu lts routine healing, section. subsequent encounter documented in [...] who have questions please contact the health hospice care consultant that requested your imaging first. ? Electronically signed by: Agusto Montelongo MD , [facility] ([phone]), at 12/29/2020 1:26 PM Narrative 12/29/2020 1:26 [...] ho have questions please contact the health hospice care consultant that requested your imaging first. Electronically signed by: Agusto Montelongo MD , [facility] ([phone]), at 12/29/2020 1:26 PM Jm Mireles MD IMG DX ORDERABLES documented in this encounter Visit Diagnoses Diagnosis Closed wedge compression fracture of L1 vertebra with routine healing, subsequent encounter documented in this encounter Care Teams Water Analyst Relationship Specialty Start Date End Date None PCP - General 10/06/20 None documented as of this encounter
--- OUTSIDE RECORDS SUMMARY | 2021-10-23 00:10 | XMS_ITS | Encounter Summary ---
:1985 [place] [address] Care Team Providers Name Role Phone None Primary Care Provider Unavailable Encounter Details Date Type Department Care Team Description 12/01/2020 Telephone Neurosurgery at [facility] [address] Social History Tobacco Use Types Packs/Day Years Used Date Former Smoker Smokeless Tobacco: Current User Chew Alcohol Use Standard Drinks/Week Comments Yes 35 (1 standard drink = 0.6 oz pure alcoh ol) Sex Assigned at Date Recorded Not on file documented as of this encounter Miscellaneous Notes Telephone Encounter - Concha Hernandez - 12/02/2020 2:53 PM EDT LM for pt re: scheduled next available DPS and Xray for 12/11 appts Telephone Encounter - Gail Paz RN - 12/02/2020 9:04 AM EDT Attempted to call patient, left voicemail with call back number Telephone Encounter - Lissett [place] - 12/01/2020 4:44 PM EDT Caller: Family member If not the patient: Name of caller: Eliza Relationship to patient: Personal Rep on file?: No Best number to reach caller: [phone] Reason for call: Eliza calling to advise patient has been having intermittent pains shooting downhis legs Recent Surgery?: No If after 4:00 pm: Inform caller that if the nurse does not call back by the end of the day, they will be called in the AM of the next business day. documented in this encounter Plan of Treatment Not on filedocumented as of this encounter Visit Diagnoses Not on filedocumented in this encounter Care Teams Lapel Padder Blindstitch Relationship Specialty Start Date End Date None PCP - General 10/06/20 None documented as of this encounter
--- OUTSIDE RECORDS SUMMARY | 2021-10-23 00:11 | XMS_ITS | CCD ---
:1985 Author Care Team Providers Name Role Phone TATIANA ARMSTRONG Attending Physician Unavailable UNLISTED REQUESTED, PROVIDER - Er Physician 1 Unavailab CK Sears Registered Nurse Unavailable Vital Signs Unknown or Not Available. Allergies Allergy Code Allergy Type Reaction Status No Known Drug Allergies 0 No known drug allergies Active Procedures Unknown or Not Available. History of Immunizations Unknown or Not Available. Problems Unknown or Not Available. Results Unknown or Not Available. Active Medications Unknown or Not Available. Medications Administered During Visit Unknown or Not Available. Encounters Unknown or Not Available. Social History Smoking Status Code Start Date End Date Unknown if ever smoked [id number] Patient Decision Aids Unknown or Not Available. Discharge Instructions You were admitted to [facility] on 04/25/2021 16:23 You were discharged from [facility] on 04/25/2021 17:02 Should you have any questions prior to d ischarge, please contact a member of your healthcare team. If you have left the spital and have any questions, please contact your primary care physician. Chief Complaint and Reason For Visit Chief Complaint Date of Onset INDEPENDENT BLOOD DRAW Function Status Unknown or Not Available. Plan of Care Unknown or Not Available. Referral/Transition of Care Unknown or Not Available.
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
--- OUTSIDE RECORDS SUMMARY | 2021-10-23 00:11 | XMS_ITS | Encounter Summary ---
:1985 Author Organization [facility] Address [address] [place] [address] Care Team Providers Name Role Phone Unknown Primary Care Provider Unavailable Encounter Details Date Type Department Care Team Description 10/04/2020 Ancillary Procedure [place] [address] Social History Tobacco Use Types Packs/Day Years Used Date Never Assessed Sex Assigned at Date Recorded Not on file documented as of this encounter Plan of Treatment Not on filedocumented as of this encounter Procedures Procedure Name Priority Date/Time Associated Diagnosis Comme nts FILM LIBRARY STAT 10/04/2020 12:10 AM Results for this STORAGE ONLY CT EDT procedure ar e in HEAD AND SPINE the results section. documented in this encounter Results Film Library- Storage Only CT Head And Spine (10/04/2020 12:10 AM EDT) Specimen (Source) Anatomical Location Collection Method / Collectio n Time Received Time / Laterality Volume Narrative [facility] - 10/06/2020 5:15 PM EDT This exam is auto-finalizing. It's purpo se is for storage only. Jordan Henderson MD IMG FILM LIBRARY ORDERABLES Performing Organization Address City/State/ZIP Code Phon e Number RAD [place], [place] documented in this encounter Visit Diagnoses Not on filedocumented in this encounter Care Teams Scrum Master Relationship Specialty Start Date End Date Unknown PCP - General 02/14/17 10/05/20 None documented as of this encounter
--- OUTSIDE RECORDS SUMMARY | 2021-10-23 00:11 | XMS_ITS | Encounter Summary ---
:1985 Author Organization [facility] Address [address] [place] [address] Care Team Providers Name Role Phone Unknown Primary Care Provider Unavailable Encounter Details Date Type Department Care Team Description 10/04/2020 Ancillary Procedure [place] [address] Social History Tobacco Use Types Packs/Day Years Used Date Never Assessed Sex Assigned at Date Recorded Not on file documented as of this encounter Plan of Treatment Not on filedocumented as of this encounter Procedures Procedure Name Priority Date/Time Associated Diagnosis Comme nts FILM LIBRARY STAT 10/04/2020 12:05 AM Results for this STORAGE ONLY CT EDT procedure ar e in SPINE the results section. documented in this encounter Results Film Library- Storage Only CT Spine (10/04/2020 12:05 AM EDT) Specimen (Source) Anatomical Location Collection Method / Collectio n Time Received Time / Laterality Volume Narrative [facility] - 10/06/2020 5:13 PM EDT This exam is auto-finalizing. It's purpo se is for storage only. Jordan Henderson MD IMG FILM LIBRARY ORDERABLES Performing Organization Address City/State/ZIP Code Phon e Number [place], [place] documented in this encounter Visit Diagnoses Not on filedocumented in this encounter Care Teams Gum Machine Filler Relationship Specialty Start Date End Date Unknown PCP - General 02/14/17 10/05/20 None documented as of this encounter
--- OUTSIDE RECORDS SUMMARY | 2021-10-23 00:11 | XMS_ITS | Encounter Summary ---
:1985 Author Organization [facility] Address [address] [place] [address] Care Team Providers Name Role Phone Unknown Primary Care Provider Unavailable Encounter Details Date Type Department Care Team Description 10/04/2020 Ancillary Procedure [place] [address] Social History Tobacco Use Types Packs/Day Years Used Date Never Assessed Sex Assigned at Date Recorded Not on file documented as of this encounter Plan of Treatment Not on filedocumented as of this encounter Procedures Procedure Name Priority Date/Time Associated Diagnosis Comme nts FILM LIBRARY STAT 10/04/2020 12:00 AM Results for this STORAGE ONLY CT EDT procedure ar e in CHEST ABDOMEN the results PELVIS section. documented in this encounter Results Film Library- Storage Only CT Chest Abdomen Pelvis (10/04/2020 12:00 AM EDT) Specimen (Source) Anatomical Location Collection Method / Collectio n Time Received Time / Laterality Volume Narrative [facility]RISTIAN - 10/06/2020 5:12 PM EDT This exam is auto-finalizing. It's purpo se is for storage only. Jordan Henderson MD IMG FILM LIBRARY ORDERABLES Performing Organization Address City/State/ZIP Code Phon e Number RAD [place], [place] documented in this encounter Visit Diagnoses Not on filedocumented in this encounter Care Teams Payroll Analyst Relationship Specialty Start Date End Date Unknown PCP - General 02/14/17 10/05/20 None documented as of this encounter
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
== END ==
PROVIDERS: PCP Nurse Practitioner; Visit Provider Family Medicine
DX: R59.0 Localized enlarged lymph nodes (principal)
CPT/HCPCS: 76882

== ENCOUNTER 2021-12-29 17:44 | Emergency (ER) | payer MEDICAID, SELFPAY ==
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
[2021-12-29] MEDS: Omnipaque 350 MG/ML 100 ML BTL IJ (18:39)
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
[2021-12-29] MEDS: Naloxone 0.4 MG/ML VIAL 0.1 MG IVP (19:15)
[2021-12-29 19:16] LABS: Abs Immature Grans 0.07 10^3/uL (0.0-0.06); Absolute Basophil Count 0.03 10^3/uL (0.0-0.2); Absolute Monocyte Count 0.81 10^3/uL (0.1-0.8); Absolute Neutrophil Count 11.96 10^3/uL (1.2-6.7); Basophils % 0.2; Eosinophils % 0.4; HGB 14.9 g/dL (13.5-17.5); Immature Grans % 0.5; Lymphocytes % 7.6; MCH 29.3 pg (27.0-33.0); MCHC 34.7 % (32.0-36.0); MCV 85 fL (80-95); MPV 10.5 fL (8.0-11.0); Monocytes % 5.8; Neutrophils % 85.5; Platelet Count 166 10^3/uL (130-400); RBC 5.08 10^6/uL (4.36-5.78); RDW 13.8 % (11.8-14.1); RDW-SD 42.8 fL; WBC 13.99 10^3/uL (4.4-10.8)
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
[2021-12-29 19:20] LABS: Absolute Eosinophil Count 0.06 10^3/uL (0.0-0.7); Absolute Lymphocyte Count 1.06 10^3/uL (1.2-3.4)
[2021-12-29 19:32] LABS: ALT 25 U/L (16-63); AST 30 U/L (15-37); Albumin 3.8 g/dL (3.4-5.0); Alkaline Phosphatase 68 U/L (46-116); Anion Gap 4.7 mmol/L (3-11); BUN 18 mg/dL (7-18); Bilirubin, Total 0.8 mg/dL (0.2-1.0); CO2 31.3 mmol/L (21.0-32.0); CREATININE 1.2 mg/dL (0.70-1.30); Calcium 8.8 mg/dL (8.5-10.1); Chloride 99 mmol/L (98-107); Estimated GFR 81.38 (mL/min/1.73m2); Glucose 93 mg/dL (74-106); Magnesium 1.6 mg/dL (1.8-2.4); Potassium 3.5 mmol/L (3.5-5.1); Sodium 135 mmol/L (136-145); Total Protein 7.7 g/dL (6.4-8.2)
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
[2021-12-29 19:42] LABS: ETHANOL BLOOD < 3.0 mg/dL (<10)
[2021-12-29] MEDS: Amoxicillin 875/Clav. 125 TAB PO (19:46)
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
[2021-12-29 20:17] LABS: Bilirubin Negative (Negative); Blood Negative (Negative); Clarity Clear (Clear); Glucose Negative (Negative); Ketones Negative (Negative); Leukocyte Esterase Negative (Negative); Nitrite Negative (Negative); Urobilinogen 0.2 EU/dL (Up TO 0.2); pH 6.5 (5-8)
[2021-12-29] MEDS: Ibuprofen 600 MG TAB PO (20:31)
[2021-12-29 20:35] VITALS: PULSE 90; RESP 16; O2SAT 99
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
== END 2021-12-29 21:18 | disposition home or self-care (01) ==
PROVIDERS: Emergency Provider Emergency Medicine; PCP Nurse Practitioner
DX: S51.012A Laceration without foreign body of left elbow, initial encounter (principal); S00.01XA Abrasion of scalp, initial encounter; S49.91XA Unspecified injury of right shoulder and upper arm, initial encounter; V47.5XXA Car driver injured in collision with fixed or stationary object in traffic accident, initial encounter; Y99.8 Other external cause status
CPT/HCPCS: 36415; 71275; 74177; 80053; 96374; 99285; 70450; 70486; 72125; 73080; 80320; 81003; 83735; 85025; 99284; J2310; J3490